=== PATIENT | male | born 1995 | race Caucasian/White ===

== ENCOUNTER 2021-03-02 22:44 | Emergency (ER) | payer OTHER ==
[~2021-03-02] VITALS: Ht 177.8 cm; Wt 100.0 kg
[2021-03-02 23:08] VITALS: TEMP 98.5
[2021-03-03] MEDS ORDERED: AMOXICILLIN 8751 TAB PO (00:16)
[2021-03-03] MEDS ORDERED: MOTRIN 400400 MG/TAB PO (00:17)
[2021-03-03] MEDS ORDERED: TYLENOL 325MG325 MG PO (00:17)
[2021-03-03 00:35] VITALS: BP 142/70; PULSE 77
== END 2021-03-03 00:35 | disposition home or self-care (01) ==
LOC: COL.ER 22:44
DX: S61.412A Laceration without foreign body of left hand, initial encounter (principal); S61.411A Laceration without foreign body of right hand, initial encounter; W54.0XXA Bitten by dog, initial encounter